=== PATIENT | male | born 1980 | race African-American/Black ===

== ENCOUNTER 2020-06-16 02:20 | Emergency (ER) | payer SELFPAY ==
[~2020-06-16] VITALS: Ht 180.3 cm; Wt 99.3 kg
--- NOTE | 2020-06-16 02:40 | Emergency Department Note ---
History of Present Illnes History of Present Illness Chief Complaint: General Medicine Complaints History of Present Illness This is a 39 year old male, with no significant past medical history other than recurrent STDs, who presents with 2 day history of yellow penile discharge, and burning with urination that started last night. He denies any fever, chills, nausea, vomiting, or abdominal pain. He states he has had these symptoms previously, when diagnosed with gonorrhea. He states that he has been treated at least 3 times for STDs in the past, each time being infected by the same person. He states that he was last treated approximate 6 months ago. He last had unprotected intercourse last week. Patient states that he has had other STD testing previously, including HIV, approximate 1 year ago, which was negative. Historian: Patient Arrival Mode: Car Past Medical/Family History Physician Review I have reviewed the patient's past medical and family history. Any updates have been documented here. Past Medical History Recent Fever: No Clinical Suspicion of Infectio: No New/Unexplained Change in Ment: No Past Medical History: None Past Surgical History: None Social History Smoking Cessation: Current every day smoker Counseling Performed: Yes Alcohol Use: Occasional Any Illegal Drug Use: Yes (marijuana) TB Exposure/Symptoms: No Physically hurt or threatened: No Family History Family history of heart diseas: No Other Any Pre-Existing Lines (PICC,: No Is patient up to date on immun: No Review of Systems Review of Systems Constitutional: Denies chills, Denies fever EENTM: Reports no symptoms Cardiovascular: Reports no symptoms Respiratory: Reports no symptoms Gastrointestinal: Reports no symptoms Genitourinary: Reports discharge, Reports dysuria, Reports other (denies any penile sores or lesions;); Denies frequency, Denies hematuria, Denies pain Musculoskeletal: Reports no symptoms Integumentary: Reports no symptoms Psychological: Reports no symptoms Hematological/Lymphatic: Reports no symptoms Review of other systems: All other systems negative Physical Exam Related Data Allergies: Coded Allergies: No Known Allergies (Unverified , 06/16/20) Triage Vital Signs Vital Signs Date Time Temp Pulse Resp B/P (MAP) Pulse Ox O2 Delivery O2 Flow Rate FiO2 06/16/20 02:30 97.9 92 18 140/96 97 Room Air Vital signs reviewed: Yes Physical Exam CONSTITUTIONAL Constitutional: Present well-developed, Present well-nourished HENT HENT: Present normocephalic, Present atraumatic, Present oropharynx clear/moist, Present nose normal HENT L/R: Present left ext ear normal, Present right ext ear normal EYES Eyes: Reports PERRL, Reports conjunctivae normal NECK Neck: Present ROM normal PULMONARY Pulmonary: Present effort normal, Present breath sounds normal CARDIOVASCULAR Cardiovascular: Present regular rhythm, Present heart sounds normal, Present capillary refill normal, Present normal rate GASTROINTESTINAL Abdominal: Present soft, Present nontender, Present bowel sounds normal GENITOURINARY Genitourinary: Present penis normal (circumcised male, without visible discharge or lesions; no testicular masses;) SKIN Skin: Present warm, Present dry MUSCULOSKELETAL Musculoskeletal: Present ROM normal; Absent edema NEUROLOGICAL Neurological: Present alert, Present oriented x 3, Present no gross motor or sensory deficits PSYCHOLOGICAL Psychological: Present mood/affect normal, Present judgement normal Results Laboratory Laboratory UA - karen - small, blo - mod., pro - tr., naye trace; GC/Chlamydia probe - pending; Lab results reviewed: Yes Assessment & Plan Medical Decision Making MDM - FOLLOW-UP WITH ONE OF THE [facility] "STD CLINICS," SUCH [facility], FOR COMPLETE STD TESTING, INCLUDING: HIV, HEPATITIS B & C, SYPHILLIS, ETC. - WEAR A CONDOM WITH EVERY SEXUAL ENCOUNTER. - NOTIFY ALL OF YOUR SEXUAL PARTNERS THAT THEY SHOULD GO TO ONE OF THE STD CLINICS TO BE TESTED, THEY HAVE LIKELY BEEN EXPOSED, BY YOU. Assessment & Plan Final Impression: (1) High risk sexual behavior (2) Penile discharge (3) Dysuria (4) Possible exposure to STD Depart Disposition: HOME, SELF-CARE Last Vital Signs Date Time Temp Pulse Resp B/P (MAP) Pulse Ox O2 Delivery O2 Flow Rate FiO2 06/16/20 02:30 97.9 92 18 140/96 97 Room Air MEHDI GRAYSON MD Jun 16, 2020 02:40
[2020-06-16] MEDS ORDERED: CEFTRIAXONE SOD 250 MG VIAL IM ONE (02:45)
[2020-06-16] MEDS ORDERED: CEFTRIAXONE SOD 500 MG VIAL ONE (02:53)
[2020-06-16] MEDS ORDERED: AZITHROMYCIN 250 MG TAB ONE (02:53)
--- OUTSIDE RECORDS SUMMARY | 2020-06-16 02:58 | XMS REPORT | Continuity of Care Document ---
Author Author [facility] t Organization [facility] Address [address] [place] [address] Phone Unavailable Care Team Providers Care Computational Biologist Name Role Phone Lauren Centeno Attphys Ousmane Chase Attphys [place] Attphys Antonio Reid Attphys Tha Ruiz Admphys Problems Condition Name Condition Details Condition Category Status Onset Date Resolution Date Last Treatment Date Treating Clinician Comments Source PRIAPISM PRIA PISM Active 03/01/2020 [facility] Active 2020-03-01 12:00:00 2020-03-01 15:40:00 Twan Martinez PRIAPISM PRIA PISM Active 03/01/2020 [facility] Active 2020-03-01 00:00:00 2020-03-01 15:42:00 Twan Martinez OTHER OTHE R Active 03/01/2020 [facility] Diagnosis Active 2020-03-01 00:00:00 2020-03-01 15:01:00 Twan Martinez POS STD POS STD Active 09/18/2019 [facility] Active 2019-09-18 00:00:00 2019-09-18 02:52:00 Twan Martinez UTI UTI Active 04/21/2019 [facility] Active 2019-04-21 00:00:00 2019-04-22 01:22:00 [facility] FOOT PAIN FOOT PAIN Active 04/17/2019 [facility] Active 2019-04-17 00:00:00 2019-04-17 23:07:00 Twan Martinez ABD PAIN ABD PAIN Active 02/19/2019 [facility] Active 2019-02-19 00:00:00 2019-02-20 00:37:00 Twan Martinez Contact with and (suspected) exposure to infections with a predominantly sexual mode of transmission Contact with and (suspected) exposure to infections with a predominantly sexual mode of transmission 09/18/2019 09/20/2019 [facility] Problem 2019-09-18 18:00:00 2019 22:05:49 2019-09-20 22:05:49 Twan Martinez Urethral discharge, unspecified Urethral discharge, unspecified 09/18/2019 09/20/2019 [facility] 20-09-17 18:00:00 2019-09-20 22:05:49 2019-09-20 22:05:49 Twan Rodriguesann Urinary tract infection, site not specified Urinary tract infection, site not specified 04/22/2019 04/24/2019 [facility] 2019-04-22 17:00:00 2019-04-24 21:09:54 2019-04-24 21:09:54 [facility] [place] Tinea pedis Mayra a pedis 04/18/2019 04/20/2019 [facility] 2019-04-18 17:00:00 2019-04-20 21:05:38 2019-04 21:05:38 [facility] Corns and callosities [place] s and callosities 04/18/2019 04/20/2019 [facility] 2019-04-18 17:00:00 2018 21:05:38 2019-04-20 21:05:38 [facility] Lower abdominal pain, unspecified Lower abdominal pain, unspecified 02/20/2019 02/22/2019 [facility] 17-02-22 17:00:00 2019-02-22 21:07:43 2019-02-22 21:07:43 [facility] Allergies, Adverse Reactions, Alerts This patient has no known allergies or adverse reactions. Social History Social Habit Start Date Stop Date Quantity Comments Source Social History 2019-04-22 11:39:00 2019-04-22 11:39:00 Twan Martinez Medications Ordered Medication Name Filled Medication Name Start Date Stop Da te Current Medication? Ordering Clinician Indication Dosage Frequency Signature (SIG) Comments Components Source Acetaminophen 300 MG / Codeine Phosphate 30 MG Oral Tablet 2020-03-16 20:04:00 Yes 1 tab, PO, Q6H, PRN pain, # 28 tab, 0 Refill(s) [facility] Doxycycline Monohydrate 100 MG Oral Capsule 2020-03-16 20:04:00 Yes 100 mg = 1 cap, PO, Q12H, # 20 cap, 0 Refill(s) [facility] Hydralazine 2020-03-01 22:30:00 Yes Notes: (Same as: Apresoline) Push over 5 minutes [facility] Labetalol 2020-03-01 21:36:00 No 10 mg, Route: IVP, Q5Min, Dosing Weight 99.545, kg, PRN Elevated BP, Start date: 03/01/20 16:36:00 CDT, Duration: 5 doses or times, Stop date: Limited # of times [facility] Ketorolac 2020-03-01 21:36:00 Yes 4 days MEDICATION WASTE Product Size: 30 mg Product Wasted: ___ mg [facility] Acetaminophen 2020-03-01 21:36:00 No 1,000 mg, Route: IVPB, Drug form: INJ, ONCE, Dosing Weight 99.545, kg, PRN Pain Score 1-3, Start date: 03/01/20 16:36:00 CDT [facility] Morphine 2020-03-01 21:36:00 No 2 mg, Route: IVP, Q5Min, Dosing Weight 99.545, kg, PRN Pain Score 4-6, Start date: 03/01/20 16:36:00 CDT, Duration: 5 doses or times, Stop date: Limited # of times [facility] Hydromorphone 2020-03-01 21:36:00 No 0.5 mg, Route: IVP, Q5Min, Dosing Weight 99.545, kg, PRN Pain Score 7-10, Start date: 03/01/20 16:36:00 CDT, Duration: 4 doses or times, Stop date: Limited # of times [facility] Flumazenil 2020-03-01 21:36:00 No 0.2 mg, Route: IVP, PRN, Dosing Weight 99.545, kg, PRN Benzodiazepine Reversal, Initial dose, Start date: 03/01/20 16:36:00 CDT, Duration: 30 day, Stop date: 03/31/20 16:35:00 CDT [facility] Naloxone 2020-03-01 21:36:00 No 0.4 mg, Route: IVP, Q2MIN, Dosing Weight 99.545, kg, PRN Narcotic Reversal, Start date: 03/01/20 16:36:00 CDT, Duration: 8 doses or times, Stop date: Limited # of times Twan Martinez Albuterol 0.83 MG/ML Inhalant Solution 2020-03-01 21:36:00 No 2.49 mg, Route: NEB, Q20Min, Dosing Weight 99.545, kg, PRN Wheezing, Priority: STAT, Start date: 03/01/20 16:36:00 CDT, Duration: 30 day, Stop date: 03/31/20 16:35:00 CDT [facility] [place] Diphenhydramine 2020-03-01 21:36:00 No 12.5 mg, Route: IVP, Drug form: INJ, Q6H, Dosing Weight 99.545, kg, PRN Itching, Start date: 03/01/20 16:36:00 CDT, Duration: 30 day, Stop date: 03/31/20 16:35:00 CDT [facility] Meperidine 2020-03-01 21:36:00 No 12.5 mg, Route: IVP, Q30Min, Dosing Weight 99.545, kg, PRN Other -See Comment, For shivering, Start date: 03/01/20 16:36:00 CDT, Duration: 2 doses or times, Stop date: Limited # of times Twan Martinez Ondansetron 2020-03-01 21:36:00 No 4 mg, Route: IVP, ONCE, Dosing Weight 99.545, kg, PRN Nausea & Vomiting, Start date: 03/01/20 16:36:00 CDT [facility] Doxycycline Monohydrate 100 MG Oral Capsule 2020-03-01 21:25:00 Yes 100 mg = 1 cap, PO, Q12H, X 7 day, # 14 cap, 0 Refill(s) Twan Martinez Acetaminophen 300 MG / Codeine Phosphate 30 MG Oral Tablet [Tylenol with Codeine #3] 2020-03-01 21:25:00 No 1 - 2 tab, PO, Q4H, PRN Pain, X 2 day, # 20 tab, 0 Refill(s) [facility] [place] dexamethasone (ANES) 2020-03-01 21:18:00 No Route: IV, Drug form: INJ, ONCE, Stop date: 03/01/20 16:18:00 CDT [facility] ondansetron (ANES) 2020-03-01 21:07:00 No Route: IV, Drug form: INJ, ONCE, Stop date: 03/01/20 16:07:00 CDT [facility] midazolam (ANES) 2020-03-01 21:02:00 No Route: IV, Drug form: SOLN, ONCE, Stop date: 03/01/20 16:02:00 CDT [facility] fentaNYL (ANES) 2020-03-01 21:02:00 No Route: IV, Drug form: INJ, ONCE, Stop date: 03/01/20 16:02:00 CDT [facility] propofol (ANES) 2020-03-01 21:02:00 No Route: IV, Drug form: INJ, ONCE, Stop date: 03/01/20 16:02:00 CDT [facility] lidocaine (ANES) 2020-03-01 21:02:00 No Route: IV, Drug form: INJ, ONCE, Stop date: 03/01/20 16:02:00 CDT [facility] metoclopramide (ANES) 2020-03-01 21:02:00 No Route: IV, Drug form: INJ, ONCE, Stop date: 03/01/20 16:02:00 CDT [facility] ciprofloxacin (TARAS) 2 mg 2020-03-01 20:30:00 No Route: IV, Drug form: INJ, Start date: 03/01/20 15:30:00 CDT, Stop date: 03/01/20 16:30:00 CDT [facility] cefTRIAXone (TARAS) 1000 mg 2020-03-01 20:29:00 No Route: IV, Drug form: INJ, Start date: 03/01/20 15:29:00 CDT, Stop date: 03/01/20 16:29:00 CDT [facility] Lactated Ringers Injection IV (ANES) 1000 mL 2020-03-01 20:22:00 No Route: IV, Total Volume: 1,000, Start date: 03/01/20 15:22:00 CDT, Stop date: 03/01/20 16:22:00 CDT Twan Martinez Sodium Chloride 0.9% IV 1,000 mL 2020-03-01 19:07:00 No 1,000 mL, Rate: 125 ml/hr, Infuse over: 8 hr, Route: IV, Dosing Weight 99.545 kg, Total Volume: 1,000, Start date: 03/01/20 14:07:00 CDT, Duration: 30 day, Stop date: 03/31/20 14:06:00 CDT, 2.25, m2, 0 [facility] phenylephrine 1000 mcg/10 mL-NaCl 0.9% injectable solution 2020-03-01 19:03:00 No 100 microg boyd, 1 mL, Route: intraCAVERNOSAL, Drug form: INJ, PRN, Dosing Weight 99.545, kg, PRN Other -See Comment, Start date: 03/01/20 14:03:00 CDT, Duration: 30 day, Stop date: 03/31/20 14:02:00 CDT, Ischemic Priapism, 0 [facility] Sudafed 2020-03-01 19:01:00 Yes Notes: (Same as: Sudafed) [facility] Rodriguesann Azithromycin 250 MG Oral Tablet [Zithromax] 2019-09-18 07:47:00 No Notes: Take 1 hour before or 2 hours after meals. (Same As: Zithromax) [facility] Rodriguesann Ondansetron 2019-09-18 07:47:00 No Notes: ( Same as: Zofran ODT) [facility] Rocephin 2019-09-18 07:46:00 No Notes: (Talib e As: Rocephin) [facility] [place] Phenazopyridine hydrochloride 100 MG Oral Tablet [Pyridium] 2019-04-22 11:50:00 No 100 mg = 1 tab, PO, TID, PRN Dysuria, X 2 day, # 6 tab, 0 Refill(s) Twan Rodriguesann doxycycline hyclate 100 MG Oral Capsule 2019-04-22 11:49:00 Yes 100 mg = 1 cap, PO, BID, X 7 day, # 14 cap, 0 Refill(s) [facility] [place] Azithromycin 2019-04-22 11:42:00 No 1,000 mg, Route: PO, Drug form: TAB, ONCE, Dosing Weight 104.545, kg, Start date: 04/22/19 6:42:00 CDT, Stop date: 04/22/19 6:42:00 CDT, ABX Indication: Urinary Tract Infection Twan Martinez Gagandeephin 2019-04-22 11:42:00 No 250 mg, Route: IM, Drug form: PDR/INJ, ONCE, Dosing Weight 104.545, kg, Priority: STAT, Start date: 04/22/19 6:42:00 CDT, Stop date: 04/22/19 6:42:00 CDT, ABX Indication: Urinary Tract Infection Twan Martinez ibuprofen 800 mg oral tablet 2019-04-18 08:35:00 Yes 800 mg = 1 tab, PO, Q8H, PRN Fever or Pain, Take with food, X 3 day, # 9 tab, 0 Refill(s) Twan Martinez Clotrimazole 10 MG/ML Topical Cream 2019-04-18 08:35:00 Yes 1 appl, TOP, BID, apply to affected area for 2 to 4 weeks, X 14 day, # 45 gm, 0 Refill(s) Twan Martinez acetaminophen-codeine #3 2019-04-18 06:34:00 No 1 tab, Route: PO, Drug Form: TAB, Dosing Weight 111.364, kg, ONCE, STAT, Start date: 04/18/19 1:34:00 CDT, Stop date: 04/18/19 1:34:00 CDT Twan Martinez Levofloxacin 500 MG Oral Tablet [Levaquin] 2019-02-20 09:02:00 Yes 500 mg = 1 tab, PO, Q24H, X 7 day, # 7 tab, 0 Refill(s) Twan Martinez Ondansetron 4 MG Disintegrating Tablet [Zofran] 2019-02-20 09:01 :00 Yes 4 mg = 1 tab, PO, BID, PRN N ausea and Vomiting, Dissolve tab under tongue, # 10 tab, 0 Refill(s) Twan Martinez tramadol hydrochloride 50 MG Oral Tablet [Ultram] 2019-02-20 09:01:00 Yes 50 mg = 1 tab, PO, Q 6H, PRN Pain, No driving while under the influence of this medication, X 5 day, # 12 tab, 0 Refill(s) Twan Martinez Azithromycin 2019-02-20 08:51:00 No 1,000 mg, Route: PO, Drug form: TAB, ONCE, Dosing Weight 101.818, kg, Start date: 02/20/19 3:51:00 CDT, Stop date: 02/20/19 3:51:00 CDT, ABX Indication: Genital Tract Infection [facility] Rocephin 2019-02-20 08:51:00 No 1 gm, Route: IVPB, Drug form: PDR/INJ, ONCE, Dosing Weight 101.818, kg, Priority: STAT, Start date: 02/20/19 3:51:00 CDT, Stop date: 02/20/19 3:51:00 CDT, ABX Indication: Urinary Tract Infection [facility] Zofran 2019-02-20 06:11:00 No 4 mg, Route: IVP, Drug form: INJ, ONCE, Dosing Weight 101.818, kg, Priority: STAT, Start date: 02/20/19 1:11:00 CDT, Stop date: 02/20/19 1:11:00 CDT [facility] Morphine 2019-02-20 06:11:00 No 4 mg, Route: IVP, ONCE, Dosing Weight 101.818, kg, Priority: STAT, Start date: 02/20/19 1:11:00 CDT, Stop date: 02/20/19 1:11:00 CDT [facility] Sodium Chloride 0.9% (Bolus) IV 2019-02-20 06:11:00 No 1,000 mL, Infuse Over: 1 hr, Route: IV, ONCE, Priority: STAT, Dosing Weight 101.818 kg, Start date: 02/20/19 1:11:00 CDT, Stop date: 02/20/19 1:11:00 CDT [facility] Vital Signs Vital Name Observation Time Observation Value Comments Source Height 2020-03-16 20:02:00 180.34 cm [facility] Weight 2020-03-16 20:02:00 [facility] BMI Calculated 2020-03-16 20:02:00 [facility] Height 2020-03-02 18:58:00 180.34 cm [facility] Weight 2020-03-02 18:58:00 [facility] BMI Calculated 2020-03-02 18:58:00 [facility] Respitory Rate 2020-03-01 23:15:00 [facility] [place] Systolic (mm Hg) 2020-03-01 23:15:00 Petros rial Juan Diastolic (mm Hg) 2020-03-01 23:15:00 [facility] Respitory Rate 2020-03-01 22:45:00 [facility] Systolic (mm Hg) 2020-03-01 22:45:00 [facility]ros [facility] [place] Diastolic (mm Hg) 2020-03-01 22:45:00 [facility] Respitory Rate 2020-03-01 22:15:00 [facility] Systolic (mm Hg) 2020-03-01 22:15:00 [facility] Diastolic (mm Hg) 2020-03-01 22:15:00 [facility] Height 2020-03-01 17:26:00 180.34 cm [facility] BMI Calculated 2020-03-01 17:26:00 [facility] Weight 2020-03-01 17:26:00 [facility] [place] Heart Rate 2020-03-01 17:26:00 [facility] Temperature Oral (F) 2020-03-01 17:26:00 98.5 F [facility] [place] Temperature Oral (F) 2019-09-18 08:07:00 98.2 F [facility] [place] Heart Rate 2019-09-18 08:07:00 [facility] [place] Respitory Rate 2019-09-18 08:07:00 [facility] [place] Systolic (mm Hg) 2019-09-18 08:07:00 [facility]ros [facility] Diastolic (mm Hg) 2019-09-18 08:07:00 [facility] Systolic (mm Hg) 2019-09-18 07:44:00 [facility] Diastolic (mm Hg) 2019-09-18 07:44:00 [facility] [place] Heart Rate 2019-09-18 07:44:00 [facility] [place] Respitory Rate 2019-09-18 07:44:00 [facility] [place] Temperature Oral (F) 2019-09-18 07:44:00 98.4 F [facility] Systolic (mm Hg) 2019-04-22 12:35:00 [facility]ros [facility] [place] Diastolic (mm Hg) 2019-04-22 12:35:00 [facility] Heart Rate 2019-04-22 12:35:00 [facility] [place] Respitory Rate 2019-04-22 12:35:00 [facility] Temperature Oral (F) 2019-04-22 12:35:00 98.1 F [facility] Systolic (mm Hg) 2019-04-22 05:54:00 [facility] [place] Diastolic (mm Hg) 2019-04-22 05:54:00 [facility] Heart Rate 2019-04-22 05:54:00 [facility] Respitory Rate 2019-04-22 05:54:00 [facility] [place] Temperature Oral (F) 2019-04-22 05:54:00 98.5 F [facility] [place] Height 2019-04-22 05:54:00 180.34 cm [facility] [place] BMI Calculated 2019-04-22 05:54:00 [facility] Weight 2019-04-22 05:54:00 [facility] [place] Temperature Oral (F) 2019-04-18 08:17:00 98.8 F [facility] Heart Rate 2019-04-18 08:17:00 [facility] [place] Respitory Rate 2019-04-18 08:17:00 [facility] [place] Systolic (mm Hg) 2019-04-18 08:17:00 [facility]ros [facility] [place] Diastolic (mm Hg) 2019-04-18 08:17:00 [facility] Systolic (mm Hg) 2019-04-18 03:56:00 [facility]ros [facility] [place] Diastolic (mm Hg) 2019-04-18 03:56:00 [facility] Heart Rate 2019-04-18 03:56:00 [facility] Respitory Rate 2019-04-18 03:56:00 [facility] Temperature Oral (F) 2019-04-18 03:56:00 99.0 F [facility] Height 2019-04-18 03:56:00 180.34 cm [facility] BMI Calculated 2019-04-18 03:56:00 [facility] Weight 2019-04-18 03:56:00 [facility] Systolic (mm Hg) 2019-02-20 09:16:00 [facility]ros [facility] [place] Diastolic (mm Hg) 2019-02-20 09:16:00 [facility] [place] Respitory Rate 2019-02-20 09:16:00 [facility] [place] Temperature Oral (F) 2019-02-20 09:16:00 98.1 F [facility] Heart Rate 2019-02-20 09:16:00 [facility] [place] Systolic (mm Hg) 2019-02-20 06:30:00 [facility] [place] Diastolic (mm Hg) 2019-02-20 06:30:00 [facility] Heart Rate 2019-02-20 04:45:00 [facility] [place] Systolic (mm Hg) 2019-02-20 04:45:00 [facility] [place] Diastolic (mm Hg) 2019-02-20 04:45:00 [facility] Temperature Oral (F) 2019-02-20 04:45:00 98.2 F [facility] [place] Respitory Rate 2019-02-20 04:45:00 [facility] BMI Calculated 2019-02-20 04:45:00 [facility] Weight 2019-02-20 04:45:00 [facility] [place] Height 2019-02-20 04:45:00 180.34 cm [facility] [place] Procedures This patient has no known procedures. Encounters Start Date/Time End Date/Time [facility] Source 2020-04-20 09:15:00 2020-04-20 09:15:00 [id number] 2020-03-16 14:45:00 2020-03-16 23:59:59 Outpatient Jaxon CentenoMG MG [id number] 2020-03-02 13:30:00 2020-03-02 23:59:59 Outpatient Jaxon CentenoMG MG [id number] 2020-03-01 12:20:30 2020-03-01 18:30:00 Outpatient Jaxon CentenoSE MHSE [id number] 2020-03-01 12:20:30 2020-03-01 18:30:00 Outpatient Jaxon Centeno MHSE [facility]SE [id number] 2020-03-01 14:42:00 2020-03-01 14:42:00 Outpatient E [facility]SE [id number] 2019-09-18 01:39:44 2019-09-18 03:09:00 [id number] 2019-09-18 01:39:00 2019-09-18 01:39:00 Emergency E MHSE [facility]SE [id number] 2019-04-22 00:48:57 2019-04-22 07:37:00 Outpatient Marixa Chase MHSE MHSE [id number] 2019-04-22 00:48:00 2019-04-22 00:48:00 Emergency E MHSE [id number] 2019-04-17 22:53:30 2019-04-18 03:15:00 Outpatient Twila Walton MHSE MHSE [id number] 2019-04-17 22:53:00 2019-04-17 22:53:00 Emergency E MHSE [facility] [id number] 2019-02-19 23:43:00 2019-02-20 04:57:00 Outpatient Abdiel Reid Giacomo-Nam MHSE MHSE [id number] 2019-02-19 23:43:00 2019-02-19 23:43:00 Emergency E MHSE [id number] Results Test Description Test Time Test Comments Results Result Comments Source BLOOD BANK RESULTS 2020-03-01 19:23:00 Negative (03/01/20 2: 23 PM) [facility] [place] CHEM PANEL 2020-03-01 19:23:00 98 [facility] CHEM PANEL 2020-03-01 19:23:00 9 [facility] CHEM PANEL 2020-03-01 19:23:00 1.31 [facility] CHEM PANEL 2020-03-01 19:23:00 138 [facility] CHEM PANEL 2020-03-01 19:23:00 3.9 [facility] [place] CHEM PANEL 2020-03-01 19:23:00 107 [facility] [place] CHEM PANEL 2020-03-01 19:23:00 29 [facility] [place] CHEM PANEL 2020-03-01 19:23:00 8.6 [facility] [place] CHEM PANEL 2020-03-01 19:23:00 5.9 [facility] CHEM PANEL 2020-03-01 19:23:00 80 [facility] [place] DRUG SCREEN 2020-03-01 19:23:00 Negative *NA*(03/01/20 2:23 PM) [facility] DRUG SCREEN 2020-03-01 19:23:00 Negative *NA*(03/01/20 2:23 PM) [facility] DRUG SCREEN 2020-03-01 19:23:00 Negative *NA*(03/01/20 2:23 PM) [facility] [place] DRUG SCREEN 2020-03-01 19:23:00 Negative *NA*(03/01/20 2:23 PM) [facility] [place] DRUG SCREEN 2020-03-01 19:23:00 Positive *ABN*(03/01/20 2:23 PM) [facility] [place] DRUG SCREEN 2020-03-01 19:23:00 Negative *NA*(03/01/20 2:23 PM) [facility] DRUG SCREEN 2020-03-01 19:23:00 Negative *NA*(03/01/20 2:23 PM) [facility] DRUG SCREEN 2020-03-01 19:23:00 See Note (03/01/20 2:23 PM) [facility] [place] HEMATOLOGY 2020-03-01 19:23:00 6.3 [facility] HEMATOLOGY 2020-03-01 19:23:00 4.60 [facility] [place] HEMATOLOGY 2020-03-01 19:23:00 14.5 [facility] HEMATOLOGY 2020-03-01 19:23:00 43.9 [facility] [place] HEMATOLOGY 2020-03-01 19:23:00 95.3 [facility] [place] HEMATOLOGY 2020-03-01 19:23:00 Test Item MCH (test code = MCH) 31.4 pg 27.0-31.0 [facility] [id number] 19:23:0033.0[facility] 2020-03-01 19:23:0013.4[facility] AiexxmmZUSUHLEMFF5767-40-25 19:23:66052Aqcnldbk WssvosuOULODUXVEF5849-23-70 19:23:007.1[facility] EjpekefJJQMRLKHQJ2940-11-34 19:23:00* Test Item Value Reference Range Interpretation Comments PT (test code = PT) 12.9 s 12.0-14.7 [facility] [id number] 19:23:00* Test Item Value Reference Range Interpretation Comments INR (test code = INR) 0.97 1 0.85-1.17 [facility] [id number] 19:23:00* Test Item Value Reference Range Interpretation Comments PTT (test code = PTT) 30.8 s 22.9-35.8 [facility] [id number] 19:23:0057.9[facility]annHEMATOLOGY 2020-03-01 19:23:0027.4[facility] TozzxhkWKUOEKEEWX0806-32-34 19:23:0010.9[facility] DxvuxocVZXIOKNOWR8819-47-74 19:23:003.1[facility] AqgzeeiYUHBWGILQS7800-64-30 19:23:000.7[facility] ZzdbltgIVGOMZPLBE7465-88-83 19:23:003.6[facility] [id number] 19:23:001.7[facility] RridtegXTQFNJOYGY0233-02-50 19:23:000.7 [facility] OitegplNPWWMQFGZR9167-93-20 19:23:000.2[facility] HermannIMMUNOLOGY 2020-03-01 19:23:00Not Detected (03/01/20 2:23 PM)[facility]ann[facility]LECULAR [id number] 08:13:00Urine *NA*(09/18/19 2:13 AM)[facility] [place] MOLECULAR [id number] 08:13:00Negative *NA*(09/18/19 2:13 AM)[facility] [id number] 08:13:00Positive 1*ABN*(09/18/19 2:13 AM) [facility] [id number] 09:25:00Urine *NA*(04/22/19 4:25 AM)[facility] [id number] 09:25:00Positive 1*ABN*(04/22/19 4:25 AM)[facility] [id number] 09:25:00 Negative *NA*(04/22/19 4:25 AM)[facility] [id number] 09:25:00 Yellow *NA*(04/22/19 4:25 AM)[facility] [id number] 09:25:00 Clear (04/22/19 4:25 AM)[facility] [id number] 09:25:00* Test Item Value Reference Range Interpretation Comments UA Spec Grav (test code = UA Spec Grav) 1.026 1 [facility] [id number] 09:25:00* Test Item Value Reference Range Interpretation Comments UA pH (test code = UA pH) 5.0 1 5.0-8.0 [facility] [id number] 09:25:00Negative *NA*(04/22/19 4:25 AM) [facility] [id number] 09:25:00Small *ABN*(04/22/19 4:25 AM) [facility] [id number] 09:25:00Negative (04/22/19 4:25 AM) [facility] [id number] 09:25:00Trace *ABN*(04/22/19 4:25 AM) [facility] [id number] 09:25:008[facility] [id number] 09:25:002[facility]annMOLECULAR [id number] 06:58:00 Urine *NA*(02/20/19 1:58 AM)[facility]ann[facility]LE[facility]ULAR [id number] 06:58:00Negative *NA*(02/20/19 1:58 AM)[facility]ann[facility] DIAGNOSTIC 2019-02-20 06:58:00Positive *ABN*(02/20/19 1:58 AM)[facility]annCHEM PANEL 2019-02-20 06:42:0086[facility] HermannCHEM [id number] 06:42:004.0[facility]annCHEM [id number] 06:42:008.2[facility]annCHEM [id number] 06:42:0045[facility]annCHEM [id number] 06:42:0084[facility]annCHEM [id number] 06:42:000.3[facility]annCHEM [id number] 06:42:0029 [facility]annCHEM [id number] 06:42:0071[facility]annCHEM PANEL 2019-02-20 06:42:001.46[facility] HermannCHEM [id number] 06:42:003.5[facility] HermannCHEM OAADV7120-39-82 06:42:93521Ihrumriv HermannCHEM KHCFF6243-46-27 06:42:008.8[facility]annCHEM OILIF4218-53-63 06:42:35532Lizbmidf HermannCHEM MKJQM5328-72-72 06:42:0025[facility]annCHEM AERTA9347-87-10 06:42:0094 [facility]annCHEM RWDTT1431-49-77 06:42:0018[facility]annCHEM PANEL 2019-02-20 06:42:0013.5[facility]annCHEM FXQBB8608-85-61 06:42:00* Test Item Value Reference Range Interpretation Comments B/C Ratio (test code = B/C Ratio) 12 1 6-25 [facility] HermannCHEM [id number] 06:42:00* Test Item Value Reference Range Interpretation Comments A/G Ratio (test code = A/G Ratio) 1.0 1 0.7-1.6 [facility]annCHE[facility] [id number] 06:42:004.2[facility]annHEMATOLOGY 2019-02-20 06:42:00* Test Item Value Reference Range Interpretation Comments MCH (test code = MCH) 30.5 pg 27.0-31.0 [facility] KqrbxcbOIBNAHFDOX8410-24-47 06:42:004.83[facility]annHEMATOLOGY 2019-02-20 06:42:0014.7[facility] TcpjvchJBINCPIDYV1595-61-02 06:42:0045.4[facility] JuawofaUKZZZDLWFK9368-07-87 06:42:007.4[facility] MzlccwnFKTPTEFAMQ2590-14-48 06:42:0094.0[facility] JmyfgrwTAKFYXQSJQ3962-80-52 06:42:007.1[facility] [place] FUFHZVTDNI3346-41-34 06:42:0032.4[facility] BhekkahOGZGOOHAUY0840-42-70 06:42:00 13.1[facility] RaerhkrEKBMEYQIFT8716-74-56 06:42:03031Bkarfwdq HermannHEMATOLOGY 2019-02-20 06:42:000.7[facility] RsbuetwCUXAWGFAES2708-23-52 06:42:003.3[facility] JmwnupzDDDFCNQJEO8398-92-33 06:42:002.8[facility] BnmzarkJBGBYYNERB6278-25-53 06:42:000.9[facility] JkhuiuyPYUQKMEAQQ8623-38-50 06:42:000.3[facility] [place] AAGGUTPQTX4860-13-13 06:42:004.0[facility] YlteazqHGYCXWWJSY4594-94-40 06:42:000.1 [facility] VogpsxbKSVCJECLJC1122-33-57 06:42:0045.2[facility]annHEMATOLOGY 2019-02-20 06:42:0037.5[facility] LptmqfkOFFPKSLILW4421-28-16 06:42:0012.6[facility]annURINE AND MGWDJ8322-03-73 06:42:00Large *ABN*(02/20/19 1:42 AM)[facility] AND GPVWP3221-89-96 06:42:20656Yywumvmk HermannURINE AND STOOL 2019-02-20 06:42:006[facility] PHEHT9361-06-95 06:42:00Moderate *ABN*(02/20/19 1:42 AM)[facility] [id number] 06:42:00Negative (02/20/19 1:42 AM)[facility] [id number] 06:42:00Negative *NA*(02/20/19 1:42 AM)[facility] [id number] 06:42:00* Test Item Value Reference Range Interpretation Comments UA Spec Grav (test code = UA Spec Grav) 1.015 1 [facility] [id number] 06:42:00* Test Item Value Reference Range Interpretation Comments UA pH (test code = UA pH) 5.0 1 5.0-8.0 [facility] AND [id number] 06:42:00Slight *ABN*(02/20/19 1:42 AM) [facility]
--- OUTSIDE RECORDS SUMMARY | 2020-06-16 02:58 | XMS REPORT | Continuity of Care Document ---
Author Author [place] [employer] Happy Inspector Address Unknown Phone Unavailable Care Team Providers Care Dump Grader Name Role Phone [employer] [facility] [employer] Unavailable Un available Problems Problem Status Onset Date Classification Date Reported Comments Source PRIAPISM Active 03/01/2020 [facility] PRIAPISM Active 03/01/2020 [facility] OTHER Active 03/01/2020 [facility] Contact with and (suspected) exposure to infections with a predominantly sexual mode of transmission 0 09/20/2019 [facility] Urethral discharge, unspecified 09/18/2019 09/20/2019 [facility] POS STD Active 09/18/2019 [facility] Urinary tract infection, site not specified 04/22/2019 04/24/2019 [facility] UTI Active 0 04/21/2019 [facility] Tinea pedis 04/18/2019 04/20/2019 [facility] Corns and callosities 04/18/2019 04/20/2019 [facility] FOOT PAIN Active 04/17/2019 [facility] Lower abdominal pain, unspecified 02/20/2019 02/22/2019 [facility] ABD PAIN Active 02/19/2019 [facility] Medications Medication Details Route Status Patient Instructions Ordering Provider Order Date Source Acetaminophen 300 MG / Codeine Phosphate 30 MG Oral Tablet 1 tab, PO, Q6H, PRN pain, # 28 tab, 0 Refill(s) Active 03/16/2020 [facility] Doxycycline Monohydrate 100 MG Oral Capsule 100 mg = 1 cap, PO, Q12H, # 20 cap, 0 Refill(s) Active 03/16/2020 [facility] Hydralazine Notes: (Same as: A presoline) Push over 5 minutes Inactive 03/01/2020 [facility] Labetalol 10 mg, Route: IVP, Q 5Min, Dosing Weight 99.545, kg, PRN Elevated BP, Start date: 03/01/20 16:36:00 CDT, Duration: 5 doses or times, Stop date: Limited # of times Inactive 03/01/2020 [facility] Ketorolac 4 days MEDICA TION WASTE Product Size: 30 mg Product Wasted: ___ mg Inactive 03/01/2020 [facility] Acetaminophen 1,000 mg, Route: IVPB, Drug form: INJ, ONCE, Dosing Weight 99.545, kg, PRN Pain Score 1-3, Start date: 03/01/20 16:36:00 CDT Inactive 03/01/2020 [facility] Morphine 2 mg, Route: IVP, Q5M in, Dosing Weight 99.545, kg, PRN Pain Score 4-6, Start date: 03/01/20 16:36:00 CDT, Duration: 5 doses or times, Stop date: Limited # of times Inactive 03/01/2020 [facility] Hydromorphone 0.5 mg, Route: I CATEGORY DIRECTOR, Q5Min, Dosing Weight 99.545, kg, PRN Pain Score 7-10, Start date: 03/01/20 16:36:00 CDT, Duration: 4 doses or times, Stop date: Limited # of times Inactive 03/01/2020 [facility] Flumazenil 0.2 mg, Route: IVP, PRN, Dosing Weight 99.545, kg, PRN Benzodiazepine Reversal, Initial dose, Start date: 03/01/20 16:36:00 CDT, Duration: 30 day, Stop date: 03/31/20 16:35:00 CDT Inactive 03/01/2020 [facility] Naloxone 0.4 mg, Route: IVP, Q 2MIN, Dosing Weight 99.545, kg, PRN Narcotic Reversal, Start date: 03/01/20 16:36:00 CDT, Duration: 8 doses or times, Stop date: Limited # of times Inactive 03/01/2020 [facility] Albuterol 0.83 MG/ML Inhalant Solution 2.49 mg, Route: NEB, Q20Min, Dosing Weight 99.545, kg, PRN Wheezing, Priority: STAT, Start date: 03/01/20 16:36:00 CDT, Duration: 30 day, Stop date: 03/31/20 16:35:00 CDT Inactive 03/01/2020 [facility] Diphenhydramine 12.5 mg, Route : IVP, Drug form: INJ, Q6H, Dosing Weight 99.545, kg, PRN Itching, Start date: 03/01/20 16:36:00 CDT, Duration: 30 day, Stop date: 03/31/20 16:35:00 CDT Inactive 03/01/2020 [facility] Meperidine 12.5 mg, Route: IVP , Q30Min, Dosing Weight 99.545, kg, PRN Other -See Comment, For shivering, Start date: 03/01/20 16:36:00 CDT, Duration: 2 doses or times, Stop date: Limited # of times Inactive 03/01/2020 [facility] Ondansetron 4 mg, Route: IVP, ONCE, Dosing Weight 99.545, kg, PRN Nausea & Vomiting, Start date: 03/01/20 16:36:00 CDT Inactive 03/01/2020 [facility] Doxycycline Monohydrate 100 MG Oral Capsule 100 mg = 1 cap, PO, Q12H, X 7 day, # 14 cap, 0 Refill(s) Active 03/01/2020 [facility] Acetaminophen 300 MG / Codeine Phosphate 30 MG Oral Tablet [Tylenol with Codeine #3] 1 - 2 tab, PO, Q4H, PRN Pain, X 2 day, # 20 tab, 0 Refill(s) No Longer Active 03/01/2020 [facility] dexamethasone (ANES) Route: IV , Drug form: INJ, ONCE, Stop date: 03/01/20 16:18:00 CDT Inactive 03/01/2020 [facility] ondansetron (ANES) Route: IV, Drug form: INJ, ONCE, Stop date: 03/01/20 16:07:00 CDT Inactive 03/01/2020 [facility] midazolam (ANES) Route: IV, Dr ug form: SOLN, ONCE, Stop date: 03/01/20 16:02:00 CDT Inactive 03/01/2020 [facility] fentaNYL (ANES) Route: IV, Jose g form: INJ, ONCE, Stop date: 03/01/20 16:02:00 CDT Inactive 03/01/2020 [facility] propofol (ANES) Route: IV, Jose g form: INJ, ONCE, Stop date: 03/01/20 16:02:00 CDT Inactive 03/01/2020 [facility] lidocaine (ANES) Route: IV, Dr ug form: INJ, ONCE, Stop date: 03/01/20 16:02:00 CDT Inactive 03/01/2020 [facility] metoclopramide (ANES) Route: I V, Drug form: INJ, ONCE, Stop date: 03/01/20 16:02:00 CDT Inactive 03/01/2020 [facility] ciprofloxacin (ANES) 2 mg Rout e: IV, Drug form: INJ, Start date: 03/01/20 15:30:00 CDT, Stop date: 03/01/20 16:30:00 CDT Inactive 03/01/2020 [facility] cefTRIAXone (ANES) 1000 mg Rou te: IV, Drug form: INJ, Start date: 03/01/20 15:29:00 CDT, Stop date: 03/01/20 16:29:00 CDT Inactive 03/01/2020 [facility] Lactated Ringers Injection IV (ANES) 1000 mL Route: IV, Total Volume: 1,000, Start date: 03/01/20 15:22:00 CDT, Stop date: 03/01/20 16:22:00 CDT Inactive 03/01/2020 [facility] Sodium Chloride 0.9% IV 1,000 mL 1,000 mL, Rate: 125 ml/hr, Infuse over: 8 hr, Route: IV, Dosing Weight 99.545 kg, Total Volume: 1,000, Start date: 03/01/20 14:07:00 CDT, Duration: 30 day, Stop date: 03/31/20 14:06:00 CDT, 2.25, m2, 0 Inactive 03/01/2020 [facility] phenylephrine 1000 mcg/10 mL-NaCl 0.9% i njectable solution 100 microgram, 1 mL, Route: intraCAVERNO DOYLE, Drug form: INJ, PRN, Dosing Weight 99.545, kg, PRN Other -See Comment, Start date: 03/01/20 14:03:00 CDT, Duration: 30 day, Stop date: 03/31/20 14:02:00 CDT, Ischemic Priapism, 0 Inactive 03/01/2020 [facility] Sudafed Notes: (Same as: Sudaf ed) Inactive 03/01/2020 [facility] Azithromycin 250 MG Oral Tablet [Zithromax] Notes: Take 1 hour before or 2 hours after meals. (Same As: Zithromax) Inactive 09/18/2019 [facility] Ondansetron Notes: (Same as: Helen jimenez ODT) Inactive 09/18/2019 [facility] Rocephin Notes: (Same As: Leatha phihattie) Inactive 09/18/2019 [facility] Phenazopyridine hydrochloride 100 MG Ora l Tablet [Pyridium] 100 mg = 1 tab, PO, TID, PRN Dysuria, X 2 day, # 6 tab, 0 Refill(s) No Longer Active 04/22/2019 [facility] doxycycline hyclate 100 MG Oral Capsule 100 mg = 1 cap, PO, BID, X 7 day, # 14 cap, 0 Refill(s) Active 04/22/2019 [facility] Azithromycin 1,000 mg, Route: PO, Drug form: TAB, ONCE, Dosing Weight 104.545, kg, Start date: 04/22/19 6:42:00 CDT, Stop date: 04/22/19 6:42:00 CDT, ABX Indication: Urinary Tract Infection Inactive 04/22/2019 [facility] Rocephin 250 mg, Route: IM, Dr ug form: PDR/INJ, ONCE, Dosing Weight 104.545, kg, Priority: STAT, Start date: 04/22/19 6:42:00 CDT, Stop date: 04/22/19 6:42:00 CDT, ABX Indication: Urinary Tract Infection Inactive 04/22/2019 [facility] ibuprofen 800 mg oral tablet 8 00 mg = 1 tab, PO, Q8H, PRN Fever or Pain, Take with food, X 3 day, # 9 tab, 0 Refill(s) Active 04/18/2019 [facility] Clotrimazole 10 MG/ML Topical Cream 1 appl, TOP, BID, apply to affected area for 2 to 4 weeks, X 14 day, # 45 gm, 0 Refill(s) Active 04/18/2019 [facility] acetaminophen-codeine #3 1 tab , Route: PO, Drug Form: TAB, Dosing Weight 111.364, kg, ONCE, STAT, Start date: 04/18/19 1:34:00 CDT, Stop date: 04/18/19 1:34:00 CDT Inactive 04/18/2019 [facility] Levofloxacin 500 MG Oral Tablet [Levaquin] 500 mg = 1 tab, PO, Q24H, X 7 day, # 7 tab, 0 Refill(s) Active 02/20/2019 [facility] Ondansetron 4 MG Disintegrating Tablet [Zofran] 4 mg = 1 tab, PO, BID, PRN Nausea and Vomiting, Dissolve tab under tongue, # 10 tab, 0 Refill(s) Active 02/20/2019 [facility] tramadol hydrochloride 50 MG Oral Tablet [Ultram] 50 mg = 1 tab, PO, Q6H, PRN Pain, No driving while under the influence of this medication, X 5 day, # 12 tab, 0 Refill(s) Active 02/20/2019 [facility] Azithromycin 1,000 mg, Route: PO, Drug form: TAB, ONCE, Dosing Weight 101.818, kg, Start date: 02/20/19 3:51:00 CDT, Stop date: 02/20/19 3:51:00 CDT, ABX Indication: Genital Tract Infection Inactive 02/20/2019 [facility] Rocephin 1 gm, Route: IVPB, Dr ug form: PDR/INJ, ONCE, Dosing Weight 101.818, kg, Priority: STAT, Start date: 02/20/19 3:51:00 CDT, Stop date: 02/20/19 3:51:00 CDT, ABX Indication: Urinary Tract Infection Inactive 02/20/2019 [facility] Zofran 4 mg, Route: IVP, Drug form: INJ, ONCE, Dosing Weight 101.818, kg, Priority: STAT, Start date: 02/20/19 1:11:00 CDT, Stop date: 02/20/19 1:11:00 CDT Inactive 02/20/2019 [facility] Morphine 4 mg, Route: IVP, ONC E, Dosing Weight 101.818, kg, Priority: STAT, Start date: 02/20/19 1:11:00 CDT, Stop date: 02/20/19 1:11:00 CDT Inactive 02/20/2019 [facility] Sodium Chloride 0.9% (Bolus) IV 1,000 mL, Infuse Over: 1 hr, Route: IV, ONCE, Priority: STAT, Dosing Weight 101.818 kg, Start date: 02/20/19 1:11:00 CDT, Stop date: 02/20/19 1:11:00 CDT Inactive 02/20/2019 [facility] Allergies, Adverse Reactions, Alerts No Known Medication Allergies Immunizations No Data Provided for This Section Results Order Name Results Value Reference Range Date Interpretation Comments Source BLOOD BANK RESULTS ABO/Rh O POS 03/01/2020 [facility] BLOOD BANK RESULTS Antibody Scrn Negative (03/01/20 2:23 PM) 03/01/2020 [facility] CHEM PANEL Glucose Lvl 98 70 - 99 03/01/2020 [facility] CHEM PANEL BUN 9 7 - 22 03/01/2020 [facility] CHEM PANEL Creatinine Lvl 1.31 0.50 - 1.40 03/01/2020 [facility] CHEM PANEL Sodium Lvl 138 135 - 145 03/01/2020 [facility] CHEM PANEL Potassium Lvl 3.9 3.5 - 5.1 03/01/2020 [facility] CHEM PANEL Chloride Lvl 107 95 - 109 03/01/2020 [facility] CHEM PANEL CO2 29 24 - 32 03/01/2020 [facility] CHEM PANEL Calcium Lvl 8.6 8.5 - 10.5 03/01/2020 [facility] CHEM PANEL AGAP 5.9 10.0 - 20.0 03/01/2020 [facility] CHEM PANEL eGFR 80 03/01/2020 Result Comment: The eGFR is calculated using the CKD-EPI formula. In most young, healthy individuals the eGFR will be >90 mL/min/1.73m2. The eGFR declines with age. An eGFR of 60-89 may be normal in some populations, particularly the elderly, for whom the CKD-EPI formula has not been extensively validated. Use of the eGFR is not recommended in the following populations:

Individuals with unstable creatinine concentrations, including patients and those with serious co-morbid conditions.

Patients with extremes in muscle mass or diet.

The data above are obtained from the National Kidney Disease Education Program (NKDEP) which additionally recommends that when the eGFR is used in patients with extremes of body mass index for purposes of drug dosing, the eGFR should be multiplied by the estimated BMI. [facility] DRUG SCREEN U Amph Scr Nega tive *NA* (03/01/20 2:23 PM) Negative 03/01/2020 [facility] DRUG SCREEN U Kisha Scr Nega tive *NA* (03/01/20 2:23 PM) Negative 03/01/2020 [facility] DRUG SCREEN U Benzodiaz Scr Nega tive *NA* (03/01/20 2:23 PM) Negative 03/01/2020 [facility] DRUG SCREEN U Cocaine Scr Nega tive *NA* (03/01/20 2:23 PM) Negative 03/01/2020 [facility] DRUG SCREEN U Cannab Scr Posi tive *ABN* (03/01/20 2:23 PM) Negative 03/01/2020 [facility] DRUG SCREEN U Opiate Scr Nega tive *NA* (03/01/20 2:23 PM) Negative 03/01/2020 [facility] DRUG SCREEN U Phencyclidine Scr Nega tive *NA* (03/01/20 2:23 PM) Negative 03/01/2020 [facility] DRUG SCREEN UDS Note See Note (03/01/20 2:23 PM) 03/01/2020 [facility] HEMATOLOGY WBC 6.3 3.7 - 10.4 03/01/2020 [facility] HEMATOLOGY RBC 4.60 4.70 - 6.10 03/01/2020 [facility] HEMATOLOGY Hgb 14.5 14.0 - 18.0 03/01/2020 [facility] HEMATOLOGY Hct 43.9 42.0 - 54.0 03/01/2020 [facility] HEMATOLOGY MCV 95.3 80.0 - 94.0 03/01/2020 [facility] HEMATOLOGY MCH 31.4 27.0 - 31.0 03/01/2020 [facility] HEMATOLOGY MCHC 33.0 32.0 - 36.0 03/01/2020 [facility] HEMATOLOGY RDW 13.4 11.5 - 14.5 03/01/2020 [facility] HEMATOLOGY Platelet 290 133 - 450 03/01/2020 [facility] HEMATOLOGY MPV 7.1 7.4 - 10.4 03/01/2020 [facility] HEMATOLOGY PT 12.9 12.0 - 14.7 03/01/2020 [facility] HEMATOLOGY INR 0.97 0.85 - 1.17 03/01/2020 [facility] HEMATOLOGY PTT 30.8 22.9 - 35.8 03/01/2020 [facility] HEMATOLOGY Segs 57.9 45.0 - 75.0 03/01/2020 [facility] HEMATOLOGY Lymphocytes 27.4 20.0 - 40.0 03/01/2020 [facility] HEMATOLOGY Monocytes 10.9 2.0 - 12.0 03/01/2020 [facility] HEMATOLOGY Eosinophils 3.1 0.0 - 4.0 03/01/2020 [facility] HEMATOLOGY Basophils 0.7 0.0 - 1.0 03/01/2020 [facility] HEMATOLOGY Neutrophils # 3.6 1.5 - 8.1 03/01/2020 [facility] HEMATOLOGY Lymphocytes # 1.7 1.0 - 5.5 03/01/2020 [facility] HEMATOLOGY Monocytes # 0.7 0.0 - 0.8 03/01/2020 [facility] HEMATOLOGY Eosinophils # 0.2 0.0 - 0.5 03/01/2020 [facility] IMMUNOLOGY Coronavirus (COVID-19) NA A Not Detected (03/01/20 2:23 PM) Not Detected 03/01/2020 [facility] MOLECULAR DIAGNOSTIC Source [facility]TIM[facility] Urine *NA* (09/18/19 2:13 AM) 09/18/2019 [facility] MOLECULAR DIAGNOSTIC C trachomatis b y Amp Det (APTIMA) Negative *NA* (09/18/19 2:13 AM) Negative 09/18/2019 [facility] MOLECULAR DIAGNOSTIC N gonorrhea by Amp Det (APTIMA) Positive 1 *ABN* (09/18/19 2:13 AM) Negative 09/18/2019 Result Comment: "Significant Findings called to JUVENAL Rodriguez at 09/20/2019 09:59_ by WF_. Read Back OK." [facility] MOLECULAR DIAGNOSTIC Source [place] Urine *NA* (04/22/19 4:25 AM) 04/22/2019 [facility] MOLECULAR DIAGNOSTIC C trachomatis b y Amp Det (APTIMA) Positive 1 *ABN* (04/22/19 4:25 AM) Negative 04/22/2019 Result Comment: "Significant Findings called to CHRISTIANA DELGADO at 04/23/2019 13:42 _ by CYTHOMAS_. Read Back OK." [facility] MOLECULAR DIAGNOSTIC N gonorrhea by Amp Det (APTIMA) Negative *NA* (04/22/19 4:25 AM) Negative 04/22/2019 [facility] URINE AND STOOL UA Color Yellow *NA* (04/22/19 4:25 AM) Yellow 04/22/2019 [facility] URINE AND STOOL UA Turbidity Clear (04/22/19 4:25 AM) Clear 04/22/2019 [facility] URINE AND STOOL UA Spec Grav 1.026 <=1.030 04/22/2019 [facility] URINE AND STOOL UA pH 5.0 5.0 - 8.0 04/22/2019 [facility] URINE AND STOOL UA Protein Negative mg/dL Negative mg/dL 04/22/2019 [facility] URINE AND STOOL UA Glucose Negative mg/dL Negative mg/dL 04/22/2019 [facility] URINE AND STOOL UA Ketones Negative mg/dL Negative mg/dL 04/22/2019 [facility] URINE AND STOOL UA Bili Negative *NA* (04/22/19 4:25 AM) Negative 04/22/2019 [facility] URINE AND STOOL UA Blood Small *ABN* (04/22/19 4:25 AM) Negative 04/22/2019 [facility] URINE AND STOOL UA Nitrite Negative (04/22/19 4:25 AM) Negative 04/22/2019 [facility] URINE AND STOOL UA Leuk Est Trace *ABN* (04/22/19 4:25 AM) Negative 04/22/2019 [facility] URINE AND STOOL UA WBC 8 0 - 5 04/22/2019 [facility] URINE AND STOOL UA RBC 2 0 - 2 04/22/2019 [facility] URINE AND STOOL UA Sq Epi None Seen 04/22/2019 [facility] URINE AND STOOL UA Urobilinogen <=1.0 mg/dL 0.1 - 1.0 04/22/2019 [facility] MOLECULAR DIAGNOSTIC Source [place] Urine *NA* (02/20/19 1:58 AM) 02/20/2019 [facility] MOLECULAR DIAGNOSTIC C trachomatis b y Amp Det (APTIMA) Negative *NA* (02/20/19 1:58 AM) Negative 02/20/2019 [facility] MOLECULAR DIAGNOSTIC N gonorrhea by Amp Det (APTIMA) Positive *ABN* (02/20/19 1:58 AM) Negative 02/20/2019 [facility] CHEM PANEL Lipase Lvl 86 73 - 393 02/20/2019 [facility] CHEM PANEL Albumin Lvl 4.0 3.5 - 5.0 02/20/2019 [facility] CHEM PANEL Total Protein 8.2 6.4 - 8.4 02/20/2019 [facility] CHEM PANEL ALT 45 0 - 65 02/20/2019 [facility] CHEM PANEL Alk Phos 84 39 - 136 02/20/2019 [facility] CHEM PANEL Bili Total 0.3 0.2 - 1.3 02/20/2019 [facility] CHEM PANEL AST 29 0 - 37 02/20/2019 [facility] CHEM PANEL eGFR 71 02/20/2019 Result Comment: The eGFR is calculated using the CKD-EPI formula. In most young, healthy individuals the eGFR will be >90 mL/min/1.73m2. The eGFR declines with age. An eGFR of 60-89 may be normal in some populations, particularly the elderly, for whom the CKD-EPI formula has not been extensively validated. Use of the eGFR is not recommended in the following populations:

Individuals with unstable creatinine concentrations, including patients and those with serious co-morbid conditions.

Patients with extremes in muscle mass or diet.

The data above are obtained from the National Kidney Disease Education Program (NKDEP) which additionally recommends that when the eGFR is used in patients with extremes of body mass index for purposes of drug dosing, the eGFR should be multiplied by the estimated BMI. [facility] CHEM PANEL Creatinine Lvl 1.46 0.50 - 1.40 02/20/2019 [facility] CHEM PANEL Potassium Lvl 3.5 3.5 - 5.1 02/20/2019 [facility] CHEM PANEL Sodium Lvl 138 135 - 145 02/20/2019 [facility] CHEM PANEL Calcium Lvl 8.8 8.5 - 10.5 02/20/2019 [facility] CHEM PANEL Chloride Lvl 103 95 - 109 02/20/2019 [facility] CHEM PANEL CO2 25 24 - 32 02/20/2019 [facility] CHEM PANEL Glucose Lvl 94 70 - 99 02/20/2019 [facility] CHEM PANEL BUN 18 7 - 22 02/20/2019 [facility] CHEM PANEL AGAP 13.5 10.0 - 20.0 02/20/2019 [facility] CHEM PANEL B/C Ratio 12 6 - 25 02/20/2019 [facility] CHEM PANEL A/G Ratio 1.0 0.7 - 1.6 02/20/2019 [facility] CHEM PANEL Globulin 4.2 2.7 - 4.2 02/20/2019 [facility] HEMATOLOGY MCH 30.5 27.0 - 31.0 02/20/2019 [facility] HEMATOLOGY RBC 4.83 4.70 - 6.10 02/20/2019 [facility] HEMATOLOGY Hgb 14.7 14.0 - 18.0 02/20/2019 [facility] HEMATOLOGY Hct 45.4 42.0 - 54.0 02/20/2019 [facility] HEMATOLOGY WBC 7.4 3.7 - 10.4 02/20/2019 [facility] HEMATOLOGY MCV 94.0 80.0 - 94.0 02/20/2019 [facility] MPV 7.1 7.4 - 10.4 02/20/2019 [facility] HEMATOLOGY MCHC 32.4 32.0 - 36.0 02/20/2019 [facility] HEMATOLOGY RDW 13.1 11.5 - 14.5 02/20/2019 [facility] HEMATOLOGY Platelet 299 133 - 450 02/20/2019 [facility] HEMATOLOGY Basophils 0.7 0.0 - 1.0 02/20/2019 [facility] HEMATOLOGY Neutrophils # 3.3 1.5 - 8.1 02/20/2019 [facility] HEMATOLOGY Lymphocytes # 2.8 1.0 - 5.5 02/20/2019 [facility] HEMATOLOGY Monocytes # 0.9 0.0 - 0.8 02/20/2019 [facility] HEMATOLOGY Eosinophils # 0.3 0.0 - 0.5 02/20/2019 [facility] HEMATOLOGY Eosinophils 4.0 0.0 - 4.0 02/20/2019 [facility] HEMATOLOGY Basophils # 0.1 0.0 - 0.2 02/20/2019 [facility] Segs 45.2 45.0 - 75.0 02/20/2019 [facility] Lymphocytes 37.5 20.0 - 40.0 02/20/2019 [facility] Monocytes 12.6 2.0 - 12.0 02/20/2019 [facility] URINE AND STOOL UA Leuk Est Large *ABN* (02/20/19 1:42 AM) Negative 02/20/2019 [facility] URINE AND STOOL UA WBC 129 0 - 5 02/20/2019 [facility] URINE AND STOOL UA RBC 6 0 - 2 02/20/2019 [facility] URINE AND STOOL UA Bacteria Occasional /HPF None Seen /HPF 02/20/[address] [facility] [address] URINE AND STOOL UA Urobilinogen <=1.0 mg/dL 0.1 - 1.0 02/20/[address] [facility] [address] URINE AND STOOL UA Color Ltyellow 02/20/2019 [facility] URINE AND STOOL UA Sq Epi None Seen 02/20/2019 [facility] URINE AND STOOL UA Blood Moderate *ABN* (02/20/19 1:42 AM) Negative 02/20/2019 [facility] URINE AND STOOL UA Nitrite Negative (02/20/19 1:42 AM) Negative 02/20/2019 [facility] URINE AND STOOL UA Ketones Negative mg/dL Negative mg/dL 02/20/[address] [facility] [address] URINE AND STOOL UA Bili Negative *NA* (02/20/19 1:42 AM) Negative 02/20/2019 [facility] URINE AND STOOL UA Protein Negative mg/dL Negative mg/dL 02/20/2019 [facility] URINE AND STOOL UA Glucose Negative mg/dL Negative mg/dL 02/20/2019 [facility] URINE AND STOOL UA Spec Grav 1.015 <=1.030 02/20/2019 [facility] URINE AND STOOL UA pH 5.0 5.0 - 8.0 02/20/2019 [facility] URINE AND STOOL UA Turbidity Slight *ABN* (02/20/19 1:42 AM) Clear 02/20/2019 [facility] Culture: Urine No Growth 02/20/2019 [facility] Pathology Reports No Data Provided for This Section Diagnostic Reports Report Value Date Source Foot 3 views bilateral DX Clin ical Indication: - pain. Comparison: None. Technique: AP, lateral and oblique views of both feet. Findings: No acute fracture or dislocation of the right foot. Joint spaces are preserved. No osseous lesions. No acute fracture or dislocation of the left foot. Joint spaces are preserved. No osseous lesions. IMPRESSION: Unremarkable feet. No acute findings. SL: WHIT 04/18/2019 [facility] Abdomen/Pelvis wo IV contrast CT CT SCAN OF THE ABDOMEN [<AND PELVIS>] WITHOUT CONTRAST. HX: Clinical Indication: -Lower abdominal pain. Comparison: None Technique: Helical CT images were obtained from the domes the diaphragms to the symphysis pubis without the administration of oral or intravenous contrast. The lack of IV contrast lowers the sensitivity for diagnostic evaluation. CT imaging performed at this location utilizes radiation dose optimization techniques which include one or more of the following: -Automated exposure control -Adjustment of the mA and/or kV accordin g to patient size -Use of iterative reconstruction [employer] ue CT Radiation Dose DLP 950.99 mGy-cm ABDOMEN AND PELVIS: Mild bibasilar atelectasis. The heart is normal in size. Grossly normal gallbladder. The unenhanced liver, spleen, pancreas, and adrenals are normal in appearance. Grossly normal appendix. No renal or ureteral calculi or hydronephrosis. No significant perinephric stranding detected. Small fat-containing umbilical hernia is present. Grossly normal appendix. The bladder is nondistended. Multiple prominent bilateral inguinal nodes are present. Unilateral right L5-S1 pars defect. IMPRESSION: 1. No definite obstructive uropathy. 2. Grossly normal appendix. 3. Small fat-containing umbilical hernia is present. SL: [id number] 02/20/2019 [facility] Consultation Notes No Data Provided for This Section Discharge Summaries No Data Provided for This Section History and Physicals No Data Provided for This Section Vital Signs Vital Sign Value Date Comments Source Height 180.34 cm 03/16/[facility] Weight 96.477 03/16/[facility] BMI Calculated 29.66 03/16/2020 [facility] Height 180.34 cm 03/02/2020 [facility] Weight 99.545 03/02/2020 [facility] BMI Calculated 30.61 03/02/[facility] Respitory Rate 19 03/01/2020 [facility] Systolic (mm Hg) 146 03/01/2020 [facility] Diastolic (mm Hg) 97 03/01/2020 [facility] Respitory Rate 18 03/01/2020 [facility] Systolic (mm Hg) 136 03/01/2020 [facility] Diastolic (mm Hg) 103 03/01/2020 [facility] Respitory Rate 9 03/01/2020 [facility] Systolic (mm Hg) 151 03/01/2020 [facility] Diastolic (mm Hg) 107 03/01/2020 [facility] Height 180.34 cm 03/01/2020 [facility] BMI Calculated 30.61 03/01/2020 [facility] Weight 99.545 03/01/2020 [facility] Heart Rate 75 03/01/2020 [facility] Temperature Oral (F) 98.5 F 03/01/2020 [facility] Temperature Oral (F) 98.2 F 09/18/2019 [facility] Heart Rate 77 09/18/2019 [facility] Respitory Rate 18 09/18/2019 [facility] Systolic (mm Hg) 139 09/18/2019 [facility] Diastolic (mm Hg) 88 09/18/2019 [facility] Systolic (mm Hg) 156 09/18/2019 [facility] Diastolic (mm Hg) 106 09/18/2019 [facility] Heart Rate 74 09/18/2019 [facility] Respitory Rate 18 09/18/2019 [facility] Temperature Oral (F) 98.4 F 09/18/2019 [facility] Systolic (mm Hg) 133 04/22/2019 [facility] Diastolic (mm Hg) 83 04/22/2019 [facility] Heart Rate 82 04/22/2019 [facility] Respitory Rate 16 04/22/2019 [facility] Temperature Oral (F) 98.1 F 04/22/2019 [facility] Systolic (mm Hg) 146 04/22/2019 [facility] Diastolic (mm Hg) 92 04/22/2019 [facility] Heart Rate 87 04/22/2019 [facility] Respitory Rate 16 04/22/2019 [facility] Temperature Oral (F) 98.5 F 04/22/2019 [facility] Height 180.34 cm 04/22/2019 [facility] BMI Calculated 32.15 04/22/2019 [facility] Weight 104.545 04/22/2019 [facility] Temperature Oral (F) 98.8 F 04/18/2019 [facility] Heart Rate 71 04/18/2019 [facility] Respitory Rate 18 04/18/2019 [facility] Systolic (mm Hg) 119 04/18/2019 [facility] Diastolic (mm Hg) 79 04/18/2019 [facility] Systolic (mm Hg) 149 04/18/2019 [facility] Diastolic (mm Hg) 92 04/18/2019 [facility] Heart Rate 102 04/18/2019 [facility] Respitory Rate 18 04/18/2019 [facility] Temperature Oral (F) 99.0 F 04/18/2019 [facility] Height 180.34 cm 04/18/2019 [facility] BMI Calculated 34.24 04/18/2019 [facility] Weight 111.364 04/18/2019 [facility] Systolic (mm Hg) 127 02/20/2019 [facility] Diastolic (mm Hg) 87 02/20/2019 [facility] Respitory Rate 18 02/20/2019 [facility] Temperature Oral (F) 98.1 F 02/20/2019 [facility] Heart Rate 74 02/20/2019 [facility] Systolic (mm Hg) 131 02/20/2019 [facility] Diastolic (mm Hg) 85 02/20/2019 [facility] Heart Rate 91 02/20/2019 [facility] Systolic (mm Hg) 128 02/20/2019 [facility] Diastolic (mm Hg) 79 02/20/2019 [facility] Temperature Oral (F) 98.2 F 02/20/2019 [facility] Respitory Rate 18 02/20/2019 [facility] BMI Calculated 31.31 02/20/2019 [facility] Weight 101.818 02/20/2019 [facility] Height 180.34 cm 02/20/2019 [facility] Encounters Location Location Details Encounter Type Encounter Number Reason For Visit Attending Provider ADM Date DC Date Status Source [facility] [id number] Abdiel Reid 02/20/2019 02/20/2019 [facility] Emergency [id number] Twila Walton 04/18/2019 04/18/2019 [facility] Emergency [id number] Ousmane Rena 04/22/2019 04/22/2019 [facility] Emergency [id number] Ousmane Rena 09/18/2019 09/18/2019 [facility] Observation [id number] Salijorge Joseph 03/01/2020 03/01/2020 [facility] Outpatient [id number] Jaxon Jacobo 03/02/2020 [facility] Outpatient [id number] Jaxon Jacobo 03/02/2020 03/03/[facility] [id number] Jaxon Jacobo 03/16/2020 [facility] [id number] Jaxon Jacobo 03/16/2020 03/17/2020 [facility] [id number] Jaxon Jacobo 04/20/2020 [facility]Reg [id number] Jaxon Jacobo 04/20/2020 04/20/2020 [facility] Procedures No Data Provided for This Section Assessment and Plan No Data Provided for This Section Plan of Care No Data Provided for This Section Social History Social History Date Source Social History TypeResponse Alcohol Type Liquor. Smoking Status Current every day smoker; Type: Cigarettes; Previous treatment: None; Exposure to Tobacco Smoke None; Cigarette Smoking Last 365 Days No; Reg Smoking Cessation Counseling No entered on: 03/02/20 04/22/2019 [facility] Social History TypeResponse Alcohol Type Liquor. Smoking Status Current every day smoker; Type: Cigarettes; Previous treatment: None; Exposure to Tobacco Smoke None; Cigarette Smoking Last 365 Days No; Reg Smoking Cessation Counseling No entered on: 03/16/20 04/22/2019 [facility] Family History No Data Provided for This Section Advance Directives No Data Provided for This Section Functional Status No Data Provided for This Section
[2020-06-16] MEDS ORDERED: AZITHROMYCIN 250 MG TAB PO SCH (09:00)
== END 2020-06-16 03:10 | disposition home or self-care (01) ==
LOC: FSED 02:56
DX: R30.0 Dysuria (principal); R36.9 Urethral discharge, unspecified; Z72.51 High risk heterosexual behavior; Z20.2 Contact with and (suspected) exposure to infections with a predominantly sexual mode of transmission; F17.210 Nicotine dependence, cigarettes, uncomplicated
CPT/HCPCS: 87491; 87591; 99282; J0696

== ENCOUNTER 2020-07-16 01:48 | Emergency (ER) | payer SELFPAY ==
[~2020-07-16] VITALS: Ht 180.3 cm; Wt 99.3 kg
[2020-07-16] MEDS ORDERED: METRONIDAZOLE500 MG PO (02:27)
--- OUTSIDE RECORDS SUMMARY | 2020-07-16 02:27 | XMS REPORT | Continuity of Care Document ---
Author Author [facility] t Organization [facility] Address [address] [place] [address] Phone Unavailable Care Team Providers [employer] Name Role Phone NO, PCP PCP Unavailable Problems Condition Name Condition Details Condition Category Status Onset Date Resolution Date Last Treatment Date Treating Clinician Comments Source Penile discharge Problem [facility] Dysuria Problem [facility] Possible exposure to STD Problem [facility] Allergies, Adverse Reactions, Alerts This patient has no known allergies or adverse reactions. Social History Social Habit Start Date Stop Date Quantity Comments Source Sex Assigned At 1980 00:00:00 1980 00:00:00 Male [facility] Medications This patient has no known medications. Vital Signs Vital Name Observation Time Observation Value Comments Source Weight 2020-06-16 02:30:00 219 [lb_av] [facility] BMI (Body Mass Index) 2020-06-16 02:30:00 30.5 kg/m2 [facility] Procedures This patient has no known procedures. Plan of Care Planned Activity Planned Date Details Comments Source Instructions Chlamydia - Male [facility] Instructions Gonorrhea - Male [facility] Encounters Start Date/Time End Date/Time Encounter Type Admission Type [facility] Care Department Encounter ID Source 2020-06-16 02:56:00 2020-06-16 03:10:00 Departed Emergency Room [facility] [id number] [facility] 2020-03-01 14:42:00 2020-03-01 14:42:00 Outpatient E [id number] 2019-09-18 01:39:00 2019-09-18 01:39:00 Emergency E [id number] 2019-04-22 00:48:00 2019-04-22 00:48:00 Emergency E [id number] 2019-04-17 22:53:00 2019-04-17 22:53:00 Emergency E [id number] 2019-02-19 23:43:00 2019-02-19 23:43:00 Emergency E [id number] Results This patient has no known results.
--- NOTE | 2020-07-16 02:28 | Emergency Department Note ---
History of Present Illnes History of Present Illness Chief Complaint: penile discharge and burning 24 hours s/p having sex History of Present Illness This is a 39 year old male. was doing well prior to this. Historian: Patient Arrival Mode: Car History limited by: condition of the patient (arnie) Food Service Director Required: No Onset (how long ago): hour(s) (24) Location: see above Quality: see above Radiation: Reports non-radiation Severity: moderate Onset quality: gradual Duration (how long): hour(s) (24) Timing of current episode: constant Progression: worsening Chronicity: recurrent (std) Context: Denies recent illness, Denies recent surgery, Denies recent immobilization, Denies recent travel, Denies trauma/injury, Denies new med ications, Denies hx of DVT/PE, Denies non-compliance w/ medications Relieving factors: none Exacerbating factors: none Associated symptoms: Reports denies other symptoms Treatments prior to arrival: none Past Medical/Family History Physician Review I have reviewed the patient's past medical and family history. Any updates have been documented here. Past Medical History Recent Fever: No Clinical Suspicion of Infectio: No New/Unexplained Change in Ment: No Past Medical History: None Past Surgical History: None Social History Smoking Cessation: Current every day smoker Alcohol Use: Occasional Any Illegal Drug Use: Yes (CANNIBIS) Physically hurt or threatened: No Other Any Pre-Existing Lines (PICC,: No Review of Systems Review of Systems Constitutional: Reports no symptoms EENTM: Reports no symptoms Cardiovascular: Reports no symptoms Respiratory: Reports no symptoms Gastrointestinal: Reports no symptoms Genitourinary: Reports as per HPI Musculoskeletal: Reports no symptoms Integumentary: Reports no symptoms Neurological: Reports no symptoms Psychological: Reports no symptoms Endocrine: Reports no symptoms Hematological/Lymphatic: Reports no symptoms Review of other systems: All other systems negative Physical Exam Related Data Allergies: Coded Allergies: No Known Allergies (Unverified , 06/16/20) Triage Vital Signs Vital Signs Date Time Temp Pulse Resp B/P (MAP) Pulse Ox O2 Delivery O2 Flow Rate FiO2 07/16/20 02:00 98.5 76 18 148/92 98 Room Air Vital signs reviewed: Yes Physical Exam CONSTITUTIONAL Constitutional: Present well-developed, Present well-nourished HENT HENT: Present normocephalic, Present atraumatic, Present oropharynx clear/moist, Present nose normal HENT L/R: Present left ext ear normal, Present right ext ear normal EYES Eyes: Reports PERRL, Reports conjunctivae normal NECK Neck: Present ROM normal PULMONARY Pulmonary: Present effort normal, Present breath sounds normal CARDIOVASCULAR Cardiovascular: Present regular rhythm, Present heart sounds normal, Present capillary refill normal, Present normal rate GASTROINTESTINAL Abdominal: Present soft, Present nontender, Present bowel sounds normal GENITOURINARY Genitourinary: Present other (+penile white discharge) SKIN Skin: Present warm, Present dry MUSCULOSKELETAL Musculoskeletal: Present ROM normal NEUROLOGICAL Neurological: Present alert, Present oriented x 3, Present no gross motor or sensory deficits PSYCHOLOGICAL Psychological: Present mood/affect normal, Present judgement normal Assessment & Plan Medical Decision Making [facility] std Assessment & Plan Final Impression: (1) Sexually transmissible disease Depart Disposition: HOME, SELF-CARE Last Vital Signs Date Time Temp Pulse Resp B/P (MAP) Pulse Ox O2 Delivery O2 Flow Rate FiO2 07/16/20 02:00 98.5 76 18 148/92 98 Room Air Home Meds Active Scripts Metronidazole (METRONIDAZOLE) 500 Mg Tablet, 2000 MG PO ONCE, #4 TAB take all 4 500 mg pills at once. take with plenty of juice and food Prov:KATHLEEN MCKEON 07/16/20 Medications in the ED Ceftriaxone Sodium 1 gm ONCE ONCE IM ; Start 07/16/20 at 02:30; Stop 07/16/20 at 02:31; Status UNV Azithromycin 1,000 mg ONCE ONCE PO ; Start 07/16/20 at 02:30; Stop 07/16/20 at 02:31; Status UNV KATHLEEN MCKEON Jul 16, 2020 02:28
[2020-07-16] MEDS ORDERED: AZITHROMYCIN 250 MG TAB ONE (02:30)
[2020-07-16] MEDS ORDERED: AZITHROMYCIN 250 MG TAB PO ONE (02:30)
[2020-07-16] MEDS ORDERED: CEFTRIAXONE SOD 500 MG VIAL IM ONE (02:30)
[2020-07-16] MEDS ORDERED: CEFTRIAXONE SOD 1 GM VIAL IM ONE (02:30)
[2020-07-16] MEDS ORDERED: CEFTRIAXONE SOD 500 MG VIAL ONE (02:30)
== END 2020-07-16 03:00 | disposition home or self-care (01) ==
LOC: FSED 02:17
DX: A64 Unspecified sexually transmitted disease (principal); F17.210 Nicotine dependence, cigarettes, uncomplicated
CPT/HCPCS: 99283; J0696

== ENCOUNTER 2020-10-07 03:45 | Emergency (ER) | payer SELFPAY ==
[~2020-10-07] VITALS: Ht 180.3 cm; Wt 99.3 kg
[~2020-10-07 03:45] MED LIST: METRONIDAZOLE500 MG PO
== END 2020-10-07 04:29 | disposition home or self-care (01) ==
LOC: FSED 03:58
DX: R36.9 Urethral discharge, unspecified (principal); A64 Unspecified sexually transmitted disease; F17.210 Nicotine dependence, cigarettes, uncomplicated
CPT/HCPCS: 99282

== ENCOUNTER 2021-02-20 22:14 | Emergency (ER) | payer SELFPAY ==
[~2021-02-20] VITALS: Ht 180.3 cm; Wt 86.2 kg
[2021-02-20 22:45] VITALS: BP 146/95
== END 2021-02-20 22:45 | disposition left against medical advice (07) ==
LOC: FSED 22:20
DX: R36.9 Urethral discharge, unspecified (principal)